=== PATIENT | female | born 1995 | race Caucasian/White ===

== ENCOUNTER 2017-11-16 18:41 | Emergency (ER) | payer OTHER ==
[~2017-11-16] VITALS: Ht 160 cm; Wt 85.0 kg
[2017-11-16] MEDS ORDERED: OXYCODONE HYDROC5 MG PO (18:59)
[2017-11-16 19:13] LABS: HEMATOCRIT 38.6 % (37.0-47.0); HEMOGLOBIN 11.9 g/dl (12.0-16.0); IMMATURE GRANULOCYTES 0.1 % (0.0-5.0); MEAN CORPUSCULAR HGB CONC 30.8 g/L CALC (32.0-36.0); NEUT# 3.43 thou/uL (2.00-7.15); RED BLOOD COUNT 4.95 mill/uL (4.20-5.60); RED CELL DISTRI WIDTH 15.5 % (11.5-15.5)
[2017-11-16 19:28] LABS: ALBUMIN 4.7 g/dL (3.2-5.0); ANION GAP 19 (6-22 (CALC)); BILIRUBIN, TOTAL 0.5 mg/dL (0.0-1.4); BUN 12 mg/dL (7-17); BUN/CREATININE RATIO 19 (12-20 (CALC)); CARBON DIOXIDE 25 mmol/l (22-30); CHLORIDE 106 mmol/l (95-108); CREATININE 0.6 mg/dL (0.5-1.0); GFR > 60 ML/MIN (>=60 (CALC)); GFR FOR AFR.AMER. > 60 ML/MIN (>=60 (CALC)); POTASSIUM 3.9 mmol/l (3.5-5.1); SGPT/ALT 68 u/l (9-52); SODIUM 146 mmol/l (137-146); TOTAL PROTEIN 9.4 g/dL (6.3-8.2)
[2017-11-16 19:29] LABS: ALKALINE PHOSPHATASE 298 u/l (38-126); SGOT/AST 59 u/l (14-36)
[2017-11-16 19:39] LABS: MYOGLOBIN 11 ng/mL (0 - 62)
[2017-11-16 22:26] VITALS: BP 136/87
== END 2017-11-16 22:26 | disposition left against medical advice (07) ==
LOC: ED 18:41
PROVIDERS: Emergency Medicine
DX: R07.9 Chest pain, unspecified (principal); Z90.49 Acquired absence of other specified parts of digestive tract; Z91.19 Patient's noncompliance with other medical treatment and regimen